=== PATIENT | female | born 1945 | race Caucasian/White ===

== ENCOUNTER 2020-07-20 18:07 | Inpatient (IN) | payer OTHER ==
[2020-07-20] MEDS ORDERED: ONDANSETRON 4 MG/2 ML VIAL IVPUSH ONE (18:12)
[2020-07-20 20:36] LABS: BASO % 0.3 % (0-2.0); HEMATOCRIT 39.2 % (32.4-45.2); HEMOGLOBIN 13.2 GM/dL (10.7-15.3); LYMPH % 3.4 % (8-40); MCH 32.1 pg (25.7-33.7); MCHC 33.8 g/dl (32.0-36.0); MEAN PLT VOLUME 7.7 fl (7.5-11.1); MONO % 4.6 % (3.8-10.2); NEUT % 91.7 % (42.8-82.8); PLATELET COUNT 330 K/MM3 (134-434); RBC 4.13 M/mm3 (3.60-5.2); RDW 14.2 % (11.6-15.6); WHITE BLOOD COUNT 12.3 K/mm3 (4.0-10.0)
[2020-07-20 20:54] LABS: POTASSIUM 5.2 mmol/L (3.5-5.1)
[2020-07-20 20:57] LABS: BLOOD UREA NITROGEN 15.1 mg/dL (7-18); CALCIUM 9.2 mg/dL (8.5-10.1)
[2020-07-20 20:58] LABS: ALBUMIN 3.5 g/dl (3.4-5.0)
[2020-07-20 20:59] LABS: EPI CELLS 6 /uL (0-25.1); HYALINE CASTS 1 /uL (0-3.1); URINE APPEARANCE CLEAR; URINE BILIRUBIN 2+ (NEGATIVE); URINE COLOR DK YELLOW; URINE GLUCOSE (UA) NEGATIVE (NEGATIVE); URINE KETONE 2+ (NEGATIVE); URINE LEUK ESTERASE 1+ (NEGATIVE); URINE NITRITE POSITIVE (NEGATIVE); URINE PROTEIN TRACE (NEGATIVE); URINE RBC 353 /uL (0-23.9); URINE WBC 7 /uL (0-25.8)
[2020-07-20 21:01] LABS: CREATININE 0.9 mg/dL (0.55-1.3)
[2020-07-20 21:02] LABS: BILIRUBIN,TOTAL 0.8 mg/dL (0.2-1)
[2020-07-20] MEDS ORDERED: ACETAMINOPHEN 1000 MG/100 ML VIAL (NON FORMULARY) IVPB ONE (21:06)
[2020-07-20] MEDS ORDERED: ACETAMINOPHEN INJECTION 100 ML IVPB ONE (21:08)
[2020-07-20] MEDS ORDERED: LACTATED RINGERS SOLUTION 1000 ML INFUS.BAG IV ONE (21:15)
[2020-07-20] MEDS ORDERED: CEFTRIAXONE 1,000 MG in DEXTROSE 5%-WATER - 50 ML IVPB ONE (21:53)
[2020-07-20] MEDS ORDERED: CEFTRIAXONE 1 GM/50 ML BAG ONE (22:14)
[2020-07-20] MEDS ORDERED: HYDROmorphone HCL CARPU-JECT 2 MG/1 ML DISP.SYRIN IVPUSH ONE (22:46)
[2020-07-20] MEDS ORDERED: HYDROmorphone HCl 2 MG/ML VIAL ONE (23:10)
[2020-07-20 23:15] LABS: OVALOCYTE 1+
[2020-07-20 23:16] LABS: PLATELET ESTIMATE NORMAL
[2020-07-21 00:05] LABS: URINE BACTERIA 9.5 /uL (0-1359)
[2020-07-21] MEDS ORDERED: ONDANSETRON 4 MG/2 ML VIAL IVPUSH PRN (03:03)
[2020-07-21] MEDS: DEXTROSE 5%-0.45% SALINE 1,000 ML IV SCH (04:10)
[2020-07-21] MEDS: ACETAMINOPHEN 1000 MG/100 ML VIAL (NON FORMULARY) IVPB PRN ×3 (04:10→22:00)
[2020-07-21] MEDS ORDERED: LEVOTHYROXINE NA 25 MCG TABLET (FP) ONE (07:03)
[2020-07-21] MEDS: LEVOTHYROXINE NA 50 MCG TABLET (FP) PO SCH (07:16)
[2020-07-21 08:29] LABS: BASO % 0.5 % (0-2.0); EOS % 0.3 % (0-4.5); LYMPH % 9.7 % (8-40); MCHC 33.5 g/dl (32.0-36.0); MEAN CELL VOLUME 95.6 fl (80-96); MEAN PLT VOLUME 7.8 fl (7.5-11.1); MONO % 8.4 % (3.8-10.2); NEUT % 81.1 % (42.8-82.8); PLATELET COUNT 296 K/MM3 (134-434); RBC 3.76 M/mm3 (3.60-5.2); RDW 14.1 % (11.6-15.6); WHITE BLOOD COUNT 6.9 K/mm3 (4.0-10.0)
[2020-07-21 08:58] LABS: ALBUMIN 2.8 g/dl (3.4-5.0); BILIRUBIN,TOTAL 0.6 mg/dL (0.2-1); BLOOD UREA NITROGEN 14.8 mg/dL (7-18); CALCIUM 8.3 mg/dL (8.5-10.1); CREATININE 0.8 mg/dL (0.55-1.3); POTASSIUM 4.1 mmol/L (3.5-5.1); TOT PROT 4.9 g/dl (6.4-8.2)
[2020-07-21] MEDS ORDERED: ACETAMINOPHEN INJECTION 100 ML IVPB ONE (09:54)
[2020-07-21] MEDS ORDERED: PANTOPRAZOLE SODIUM 40 MG in SODIUM CHLORIDE 100 ML IVPB SCH (12:00)
[2020-07-21] MEDS ORDERED: PANTOPRAZOLE SODIUM 40 MG/100 ML BAG IVPB ONE (12:12)
[2020-07-21] MEDS: PANTOPRAZOLE SODIUM 40 MG VIAL IVPUSH SCH (12:25)
[2020-07-21] MEDS ORDERED: metoPROLOL SUCCINATE 25 MG TAB.SR.24H (FP) ONE (12:40)
[2020-07-21] MEDS: metoPROLOL SUCCINATE 25 MG TAB.SR.24H (FP) PO SCH (12:47)
[2020-07-21 17:13] VITALS: BMI 26.4
[2020-07-21] MEDS ORDERED: FLU VACCINE (FLULAVAL) PF 60 MCG/0.5 ML SYRINGE 2020-2021 IM ONE (17:14)
[2020-07-21] MEDS: POLYETHYLENE GLYCOL 3350 119 GM BTL PO SCH (20:20)
[2020-07-22] MEDS: DEXTROSE 5%-0.45% SALINE 1,000 ML IV SCH
[2020-07-22] MEDS: POLYETHYLENE GLYCOL 3350 119 GM BTL PO SCH ×5 (00:05→23:07)
[2020-07-22] MEDS: LEVOTHYROXINE NA 50 MCG TABLET (FP) PO SCH (07:57)
[2020-07-22] MEDS ORDERED: DEXTROSE 5%-WATER 100 ML IVPB ONE (10:45)
[2020-07-22] MEDS: CEFTRIAXONE 2 GM in DEXTROSE 5%-WATER 100 ML IVPB SCH (10:55)
[2020-07-22] MEDS: metoPROLOL SUCCINATE 25 MG TAB.SR.24H (FP) PO SCH (10:56)
[2020-07-22] MEDS: PANTOPRAZOLE SODIUM 40 MG VIAL IVPUSH SCH (10:56)
[2020-07-22] MEDS ORDERED: DEXTROSE 5%-0.45% SALINE 1,000 ML IV SCH (14:58)
[2020-07-23] MEDS: LEVOTHYROXINE NA 50 MCG TABLET (FP) PO SCH (06:09)
[2020-07-23] MEDS: POLYETHYLENE GLYCOL 3350 119 GM BTL PO SCH ×2 (06:09→13:26)
[2020-07-23 06:40] VITALS: BP 116/55; PULSE 69; TEMP 98.5
[2020-07-23 09:19] LABS: BASO % 0.9 % (0-2.0); EOS % 3.3 % (0-4.5); HEMATOCRIT 33.9 % (32.4-45.2); HEMOGLOBIN 11.4 GM/dL (10.7-15.3); LYMPH % 14.7 % (8-40); MCH 32.1 pg (25.7-33.7); MCHC 33.7 g/dl (32.0-36.0); MEAN CELL VOLUME 95.3 fl (80-96); NEUT % 73.1 % (42.8-82.8); PLATELET COUNT 280 K/MM3 (134-434); RBC 3.56 M/mm3 (3.60-5.2); RDW 14.5 % (11.6-15.6); WHITE BLOOD COUNT 5.1 K/mm3 (4.0-10.0)
[2020-07-23 09:32] LABS: POTASSIUM 3.7 mmol/L (3.5-5.1)
[2020-07-23 09:38] LABS: ALBUMIN 2.7 g/dl (3.4-5.0); BLOOD UREA NITROGEN 6.1 mg/dL (7-18); CALCIUM 7.9 mg/dL (8.5-10.1)
[2020-07-23 09:42] LABS: BILIRUBIN,TOTAL 0.3 mg/dL (0.2-1); CREATININE 0.7 mg/dL (0.55-1.3); TOT PROT 4.6 g/dl (6.4-8.2)
[2020-07-23] MEDS ORDERED: DEXTROSE 5%-WATER 100 ML IVPB ONE (10:24)
[2020-07-23] MEDS: CEFTRIAXONE 2 GM in DEXTROSE 5%-WATER 100 ML IVPB SCH (10:43)
[2020-07-23] MEDS: metoPROLOL SUCCINATE 25 MG TAB.SR.24H (FP) PO SCH (10:43)
[2020-07-23] MEDS: PANTOPRAZOLE SODIUM 40 MG VIAL IVPUSH SCH (13:58)
[2020-07-24] MEDS ORDERED: PANTOPRAZOLE 40 MG TABLET PO SCH (10:00)
== END 2020-07-23 14:43 | disposition home or self-care (01) | DRG 392 ==
LOC: JER 18:07 → JERBED 22:48 → J5S 07-21 15:38
PROVIDERS: ADMIT Internal Medicine; ATTEND Family Medicine
DX: K57.32 Diverticulitis of large intestine without perforation or abscess without bleeding (principal); N39.0 Urinary tract infection, site not specified; K21.9 Gastro-esophageal reflux disease without esophagitis; E78.5 Hyperlipidemia, unspecified; I34.0 Nonrheumatic mitral (valve) insufficiency; K22.5 Diverticulum of esophagus, acquired; K66.8 Other specified disorders of peritoneum; K22.0 Achalasia of cardia; E03.9 Hypothyroidism, unspecified; K44.9 Diaphragmatic hernia without obstruction or gangrene; K52.89 Other specified noninfective gastroenteritis and colitis; K59.00 Constipation, unspecified; K56.41 Fecal impaction; R10.32 Left lower quadrant pain
CPT/HCPCS: 36415; 74176-TC; 80053; 81003; 82550; 83605; 83690; 84484; 85025; 87040; 87077; 87086; 87186; 93005; 93010; 99285-25; C9803; G0008; J0131; Q2036; U0003

== ENCOUNTER 2023-01-15 04:12 | Day surgery (SDC) | payer OTHER ==
[2023-01-14 09:42] VITALS: BMI 26.9
[2023-01-15] MEDS ORDERED: DEXAMETHASONE SOD PHOSPHATE 10 MG/1 ML VIAL ONE (07:40)
[2023-01-15] MEDS ORDERED: LIDOCAINE HCL/PF 1% SDV 5ML VIAL ONE (07:40)
[2023-01-15] MEDS ORDERED: LIDOCAINE 1% P/F 10 MG/ML VIAL INF ONE (12:37)
[2023-01-15] MEDS ORDERED: IOHEXOL 180 MG/1 ML ML IJ ONE ×2 (12:37)
[2023-01-15] MEDS ORDERED: DEXAMETHASONE SOD PHOSPHATE 10 MG/1 ML VIAL IVPUSH ONE (12:38)
[2023-01-15 13:29] VITALS: RESP 18
[2023-01-15 13:59] VITALS: BP 130/62; PULSE 60; TEMP 98
[2023-01-15] MEDS ORDERED: ACETAMINOPHEN 500 MG TABLET (FP) PO PRN (14:30)
== END 2023-01-15 13:45 | disposition home or self-care (01) ==
LOC: JASU-SURG 04:12
PROVIDERS: ATTEND Pain Medicine Pain Medicine
PROC: 3E0R3BZ Introduction of Anesthetic Agent into Spinal Canal, Percutaneous Approach (ICD-10-PCS; 2023-01-15)
PROC: 3E0R33Z Introduction of Anti-inflammatory into Spinal Canal, Percutaneous Approach (ICD-10-PCS; principal; 2023-01-15 13:00)
DX: M54.16 Radiculopathy, lumbar region (principal)
CPT/HCPCS: 76000-TC-FY; J1100

== ENCOUNTER 2023-10-22 04:34 | Day surgery (SDC) | payer OTHER ==
[2023-10-17 09:02] VITALS: BMI 26.6
[2023-10-22] MEDS ORDERED: LIDOCAINE HCL/PF 1% SDV 5ML VIAL ONE (07:16)
[2023-10-22] MEDS ORDERED: DEXAMETHASONE SOD PHOSPHATE 10 MG/1 ML VIAL ONE ×2 (07:16→11:28)
[2023-10-22] MEDS ORDERED: ACETAMINOPHEN 500 MG TABLET (FP) PO PRN (10:36)
[2023-10-22] MEDS ORDERED: BUPIVACAINE HCL/PF 0.75% 10 ML VIAL ONE (11:28)
[2023-10-22] MEDS ORDERED: LIDOCAINE HCL/PF 2% SDV 5ML VIAL ONE (11:28)
[2023-10-22] MEDS ORDERED: LIDOCAINE HCL 1% PRESERVATIVE FREE - 30ML VIAL IJ ONE (11:31)
[2023-10-22] MEDS ORDERED: IOHEXOL 180 MG/1 ML ML IJ ONE (11:31)
[2023-10-22] MEDS ORDERED: DEXAMETHASONE SOD PHOSPHATE 10 MG/1 ML VIAL IVPUSH ONE (11:31)
[2023-10-22 12:32] VITALS: BP 121/67; PULSE 56; RESP 16; TEMP 97.7
== END 2023-10-22 12:30 | disposition home or self-care (01) ==
LOC: JASU-SURG 04:34
PROVIDERS: ATTEND Pain Medicine Pain Medicine
PROC: 3E0R3BZ Introduction of Anesthetic Agent into Spinal Canal, Percutaneous Approach (ICD-10-PCS; 2023-10-22)
PROC: 3E0R33Z Introduction of Anti-inflammatory into Spinal Canal, Percutaneous Approach (ICD-10-PCS; principal; 2023-10-22 10:45)
DX: M54.16 Radiculopathy, lumbar region (principal)
CPT/HCPCS: 76000-TC-FY; J1100

== ENCOUNTER 2023-12-04 04:22 | Day surgery (SDC) | payer OTHER ==
[2023-12-03 13:04] VITALS: BMI 25.8
[~2023-12-04 04:22] MED LIST: ACETAMINOPHEN 325 MG TABLET (FP) PO PRN
[2023-12-04] MEDS ORDERED: OFLOXACIN 0.3% OPHTHALMIC SOLUTION 5 ML BOTTLE ONE (06:39)
[2023-12-04] MEDS ORDERED: KETOROLAC TROMETHAMINE 0.5% EYE DROP 1 DROP DROPS ONE (06:39)
[2023-12-04] MEDS ORDERED: PHENYLEPHRINE 2.5% OPTHALMIC DROP 2ML BOTTLE ONE (06:39)
[2023-12-04] MEDS ORDERED: TROPICAMIDE 1% OPHTH SOLN 15 ML BOTTLE ONE (06:39)
[2023-12-04] MEDS ORDERED: CYCLOPENTOLATE HCL 1% OPHTH SOLN 2 ML BOTTLE ONE (06:39)
[2023-12-04] MEDS: OFLOXACIN 0.3% OPHTHALMIC SOLUTION 5 ML BOTTLE OP SCH (06:44)
[2023-12-04] MEDS: KETOROLAC TROMETHAMINE 0.5% EYE DROP 1 DROP DROPS OP SCH (06:44)
[2023-12-04] MEDS: TROPICAMIDE 1% OPHTH SOLN 15 ML BOTTLE OP SCH (06:44)
[2023-12-04] MEDS: PHENYLEPHRINE 2.5% OPHTH SOLN 15 ML BOTTLE OP SCH (06:44)
[2023-12-04] MEDS: CYCLOPENTOLATE HCL 1% OPHTH SOLN 2 ML BOTTLE OP SCH (06:44)
[2023-12-04] MEDS ORDERED: LIDOCAINE HCL/PF 1% SDV 5ML VIAL ONE (07:14)
[2023-12-04] MEDS ORDERED: EPINEPHrine/PF 1 MG/1 ML (1:1,000) AMPULE ONE (07:14)
[2023-12-04] MEDS ORDERED: TETRACAINE 0.5% OPHTH SOLN 2 ML BOTTLE ONE (07:15)
[2023-12-04] MEDS ORDERED: VANCOMYCIN 500 MG VIAL (RESTRICTED TO ID ONLY) ONE (07:15)
[2023-12-04] MEDS ORDERED: BSS (NA/CA/MG/K) BALANCED SALT SOLUTION OPHTH SOLN 15 ML BOTTLE ONE (07:16)
[2023-12-04] MEDS ORDERED: POVIDONE-IODINE 5% OPHTHALMIC PREP 30 ML SOLUTION ONE (07:16)
[2023-12-04] MEDS ORDERED: MIDAZOLAM HCL 2 MG/2 ML SINGLE DOSE VIAL ONE (08:03)
[2023-12-04] MEDS: TETRACAINE 0.5% OPHTH SOLN 2 ML BOTTLE OD ONE ×3 (08:06→08:08)
[2023-12-04] MEDS: POVIDONE-IODINE 5% OPHTHALMIC PREP 30 ML SOLUTION OD ONE ×2 (08:10)
[2023-12-04] MEDS: LIDOCAINE HCL 1% PRESERVATIVE FREE - 30ML VIAL IO ONE ×3 (08:15→08:17)
[2023-12-04] MEDS: BSS (NA/CA/MG/K) BALANCED SALT SOLUTION OPHTH SOLN 15 ML BOTTLE OD ONE ×2 (08:15)
[2023-12-04] MEDS: CHONDROITIN SU A/HYALUR SOD 1 KIT IO ONE ×2 (08:21)
[2023-12-04] MEDS ORDERED: ONDANSETRON 4 MG/2 ML VIAL ONE (08:27)
[2023-12-04] MEDS: EPINEPHrine 1:1,000 1,000 MCG/ML ML SQ ONE ×2 (08:29)
[2023-12-04] MEDS: VANCOMYCIN 500 MG VIAL (RESTRICTED TO ID ONLY) IVPB ONE ×2 (08:32)
[2023-12-04 08:53] VITALS: RESP 20; TEMP 96.8
[2023-12-04 10:36] VITALS: BP 114/65; PULSE 54
== END 2023-12-04 10:40 | disposition home or self-care (01) ==
LOC: JASU-SURG 04:22
PROVIDERS: ATTEND Ophthalmology
PROC: 08RJ3JZ Replacement of Right Lens with Synthetic Substitute, Percutaneous Approach (ICD-10-PCS; principal; 2023-12-04 08:00)
DX: H26.9 Unspecified cataract (principal)
CPT/HCPCS: V2632

== ENCOUNTER → 2023-12-18 | Day surgery (SDC) | payer OTHER ==
[2023-12-13 14:23] VITALS: BMI 25.8
[~2023-12-18] MED LIST changes: +BSS (NA/CA/MG/K) BALANCED SALT SOLUTION OPHTH SOLN 15 ML BOTTLE ONE; +CYCLOPENTOLATE HCL 1% OPHTH SOLN 2 ML BOTTLE ONE; +CYCLOPENTOLATE HCL 1% OPHTH SOLN 2 ML BOTTLE OP SCH; +EPINEPHrine/PF 1 MG/1 ML (1:1,000) AMPULE ONE; +KETOROLAC TROMETHAMINE 0.5% EYE DROP 1 DROP DROPS ONE; +KETOROLAC TROMETHAMINE 0.5% EYE DROP 1 DROP DROPS OP SCH; +LIDOCAINE HCL/PF 1% SDV 5ML VIAL ONE; +MIDAZOLAM HCL 2 MG/2 ML SINGLE DOSE VIAL ONE; +OFLOXACIN 0.3% OPHTHALMIC SOLUTION 5 ML BOTTLE ONE; +OFLOXACIN 0.3% OPHTHALMIC SOLUTION 5 ML BOTTLE OP SCH; +PHENYLEPHRINE 2.5% OPHTH SOLN 15 ML BOTTLE OP SCH; +PHENYLEPHRINE 2.5% OPTHALMIC DROP 2ML BOTTLE ONE; +POVIDONE-IODINE 5% OPHTHALMIC PREP 30 ML SOLUTION ONE; +TETRACAINE 0.5% OPHTH SOLN 2 ML BOTTLE ONE; +TROPICAMIDE 1% OPHTH SOLN 15 ML BOTTLE ONE; +TROPICAMIDE 1% OPHTH SOLN 15 ML BOTTLE OP SCH; +VANCOMYCIN 500 MG VIAL (RESTRICTED TO ID ONLY) ONE
[2023-12-18 06:24] VITALS: RESP 18
[2023-12-18] MEDS: PHENYLEPHRINE 2.5% OPTHALMIC DROP BOTTLE OS ONE (06:30)
[2023-12-18] MEDS: KETOROLAC TROMETHAMINE 0.5% EYE DROP 1 DROP DROPS OS ONE ×3 (06:30→06:40)
[2023-12-18] MEDS: CYCLOPENTOLATE HCL 1% OPHTH SOLN 2 ML BOTTLE OS ONE ×3 (06:30→06:40)
[2023-12-18] MEDS: OFLOXACIN 0.3% OPHTHALMIC SOLUTION 5 ML BOTTLE OS ONE ×3 (06:30→06:40)
[2023-12-18] MEDS: TROPICAMIDE 1% OPHTH SOLN 15 ML BOTTLE OS ONE ×3 (06:30→06:40)
[2023-12-18] MEDS: PHENYLEPHRINE 2.5% OPHTH SOLN 15 ML BOTTLE OS ONE ×2 (06:35→06:40)
[2023-12-18] MEDS: TETRACAINE 0.5% OPHTH SOLN 2 ML BOTTLE OS ONE (08:09)
[2023-12-18] MEDS: POVIDONE-IODINE 5% OPHTHALMIC PREP 30 ML SOLUTION OS ONE (08:11)
[2023-12-18] MEDS: LIDOCAINE HCL 1% PRESERVATIVE FREE - 30ML VIAL IO ONE (08:21)
[2023-12-18] MEDS: BSS (NA/CA/MG/K) BALANCED SALT SOLUTION OPHTH SOLN 15 ML BOTTLE OS ONE (08:21)
[2023-12-18] MEDS: CHONDROITIN SU A/HYALUR SOD 1 KIT IO ONE ×2 (08:23)
[2023-12-18] MEDS: EPINEPHrine/PF 1 MG/1 ML (1:1,000) AMPULE IO ONE ×3 (08:27→08:28)
[2023-12-18] MEDS: VANCOMYCIN 500 MG VIAL (RESTRICTED TO ID ONLY) IVPB ONE ×2 (08:39)
[2023-12-18 09:06] VITALS: TEMP 97.8
[2023-12-18 10:12] VITALS: BP 117/66; PULSE 62
== END | disposition home or self-care (01) ==
LOC: JASU-SURG 05:18
PROVIDERS: ATTEND Ophthalmology
PROC: 08RK3JZ Replacement of Left Lens with Synthetic Substitute, Percutaneous Approach (ICD-10-PCS; principal; 2023-12-18 08:00)
DX: H26.9 Unspecified cataract (principal)
CPT/HCPCS: V2632

== ENCOUNTER 2024-07-02 03:46 | Day surgery (SDC) | payer OTHER ==
[2024-06-30 16:27] VITALS: BMI 25.8
[2024-07-02 07:37] VITALS: RESP 18
[2024-07-02] MEDS ORDERED: ACETAMINOPHEN 500 MG TABLET (FP) PO PRN (08:45)
[2024-07-02] MEDS: IOHEXOL 180 MG/1 ML ML IJ ONE ×2 (09:29)
[2024-07-02] MEDS: LIDOCAINE HCL 1% PRESERVATIVE FREE - 30ML VIAL IJ ONE ×2 (09:29)
[2024-07-02] MEDS: DEXAMETHASONE SOD PHOSPHATE 10 MG/1 ML VIAL IVPUSH ONE ×2 (09:29)
[2024-07-02 09:50] VITALS: PULSE 78
[2024-07-02 10:24] VITALS: BP 130/70; TEMP 97
== END 2024-07-02 10:15 | disposition home or self-care (01) ==
LOC: JASU-SURG 03:46
PROVIDERS: ATTEND Pain Medicine Pain Medicine
PROC: 3E0R3BZ Introduction of Anesthetic Agent into Spinal Canal, Percutaneous Approach (ICD-10-PCS; 2024-07-02)
PROC: 3E0R33Z Introduction of Anti-inflammatory into Spinal Canal, Percutaneous Approach (ICD-10-PCS; principal; 2024-07-02 09:00)
DX: M54.16 Radiculopathy, lumbar region (principal)
CPT/HCPCS: 76000-TC-FY; J1100

== ENCOUNTER 2024-08-27 04:11 | Day surgery (SDC) | payer OTHER ==
[2024-08-19 15:27] VITALS: BMI 25.8
[2024-08-27] MEDS ORDERED: TRIAMCINOLONE ACET 40MG/1ML VIAL ONE (07:21)
[2024-08-27] MEDS ORDERED: ACETAMINOPHEN 500 MG TABLET (FP) PO PRN (08:54)
[2024-08-27 13:05] VITALS: BP 105/64; PULSE 62; RESP 20; TEMP 97.4
== END 2024-08-27 14:15 | disposition home or self-care (01) ==
LOC: JASU-SURG 04:11
PROVIDERS: ATTEND Pain Medicine Pain Medicine
DX: Z53.8 Procedure and treatment not carried out for other reasons (principal)

== ENCOUNTER 2024-09-25 04:02 | Day surgery (SDC) | payer OTHER ==
[2024-09-22 11:01] VITALS: BMI 25.8
[2024-09-25] MEDS ORDERED: ACETAMINOPHEN 500 MG TABLET (FP) PO PRN (08:31)
[2024-09-25 11:39] VITALS: PULSE 56
[2024-09-25] MEDS: LIDOCAINE HCL 1% PRESERVATIVE FREE - 30ML VIAL IJ ONE ×2 (12:58)
[2024-09-25] MEDS: TRIAMCINOLONE ACET 40MG/1ML VIAL IJ ONE (12:59)
[2024-09-25 14:09] VITALS: BP 125/60; RESP 18; TEMP 97.3
== END 2024-09-25 13:35 | disposition home or self-care (01) ==
LOC: JASU-SURG 04:02
PROVIDERS: ATTEND Pain Medicine Pain Medicine
PROC: 3E0U3BZ Introduction of Anesthetic Agent into Joints, Percutaneous Approach (ICD-10-PCS; 2024-09-25)
PROC: 3E0U33Z Introduction of Anti-inflammatory into Joints, Percutaneous Approach (ICD-10-PCS; principal; 2024-09-25 12:30)
DX: M16.12 Unilateral primary osteoarthritis, left hip (principal)
CPT/HCPCS: 76000-TC-FY